=== PATIENT | female | born 2000 | race Caucasian/White ===

== ENCOUNTER 2025-06-06 15:27 | Emergency (ER) | payer OTHER, SELFPAY ==
[2025-06-06 15:29] VITALS: BP 136/83
--- NOTE | 2025-06-06 18:25 | ED.GENMED ---
History of Present Illness
General
Chief Complaint: Skin Problem
Source: patient
Exam Limitations: none
Time Seen by Provider: 06/06/25 17:20
Nursing documentation reviewed up to this point in time: agreed with
History of Present Illness
History of Present Illness:
Patient is a 24-year-old female who was skateboarding last Friday 7 days ago and fell and was unsure if she had small rocks underneath her skin. She denies any redness or drainage fevers. She reports she had a left open wound to the hands however
her skin is healing and scabbed over.
Past History
Past History
ED Past Medical History: Asthma and Psychiatric (Anxiety, ADD)
ED Past Surgical History: None
Social History
Tobacco: Non-smoker
Alcohol: None
Drug: Marijuana
Personal: Single
Living: with family
Employment: Not employed
Family History
Family History: Other (Noncontributory)
Phy Exam
General Physical Exam
General Presentation: no apparent distress
General age: appears stated age
General Skin: warm and dry
General Habitus: normal
General Mental: alert
General Hydration: appears well hydrated
Neurological Exam
Neurological Exam: alert and oriented x3
Musculoskeletal Exam
Musculoskeletal Exam: full ROM and other (Bilateral volar hands with healing abrasions no obvious foreign body good flexion extension no erythema or drainage nml flex/extension of fingers )
Skin Exam
Skin Exam: normal color and warm/dry
Psychiatric Exam
Psychiatric Exam: normal mood/affect
Course
Orders/Labs/Results
Orders:
Orders
06/06/25 18:24
Hand, Left 3 View [CR Hand - Left Min 3 Views] Urgent
Comment:
Reason For Exam: possible fb
Hand, Right 3 View [CR Hand - Right Min 3 Views] Urgent
Comment:
Reason For Exam: possible fb
Vital Signs
Initial and Last Documented VS:
Initial Vital Signs
Temp Pulse Resp BP Pulse Ox
98.6 F 59 16 136/83 99
06/06/25 15:29 06/06/25 15:29 06/06/25 15:29 06/06/25 15:29 06/06/25 15:29
Last Documented Vital Signs
Temp Pulse Resp BP Pulse Ox
98.6 F 59 16 136/83 99
06/06/25 15:29 06/06/25 15:29 06/06/25 15:29 06/06/25 15:29 06/06/25 18:26
MDM/Problems Addressed
Differential Diagnosis Includes:
not limited to: Foreign body
MDM/Problems Addressed:
On exam there is no obvious foreign bodies noted and no acute findings on x-ray. There is no evidence of infection wounds appear to be healing to bilateral volar aspects of her hands will have patient continue to do good wound care and follow-up
with the family doctor return precautions given
*Radiology
Radiology exam reviewed: preliminary read by ED provider (neg for fb b/l )
*Pulse Oximetry
SaO2: 99
Oxygen Mode of Delivery: Room air
Patient hypoxic: no
*Critical Care Note
Total Time (30-74mins, 75-104mins- exclusive of procedures): Not Applicable
ED Attending Note
-
Portions of this chart may have been created with voice recognition software.� Occasional wrong word or��sound alike� substitutions may have occurred due to the inherent limitations of voice recognition software.
Discharge Plan
Departure
Patient Disposition: Home (Routine Discharge)
Date of Disposition: 06/06/25
Time of Disposition: 19:04
Patient with high blood pressure during this ER visit?: Yes
Condition: Fair
Covid-19: Not Applicable
Discharge Problem:
wound care
Instructions: Wound Care (DC), BLOOD PRESSURE
Prescriptions:
No Action
cetirizine 10 MG tablet
10 mg PO DAILY
topiramate [Topamax] 200 MG tablet
100 mg PO BID
cephalexin 500 MG capsule
500 mg PO TID Qty: 15 0RF
lidocaine HCl [Lidocaine HCl Viscous] 2 % solution
15 ml PO QIDPRN PRN (Reason: pain) Qty: 250 0RF
Referrals:
Sharla Hickman MD [Family Provider, Internal Medicine]
Activity Restrictions/Additional Instructions:
Continue to wash with soap and water twice a day.
Return if any worsening of symptoms and any evidence of infection redness swelling drainage fever chills
Interventions
Interventions:
*Risk Screen - Suicide Last Done: 06/06/25 15:32
*General Assessment Last Done: 06/06/25 15:32
*Neglect/Abuse Screening Last Done: 06/06/25 15:32
*ED- Fall Risk Assessment Last Done: 06/06/25 18:26
*ED COVID-19 Vaccine History Last Done: 06/06/25 15:32
ED-Skin Assessment Last Done: 06/06/25 18:59
Discharge Date and Time
Print Language: GREEK
== END 2025-06-06 19:18 | disposition home or self-care (01) ==
LOC: EMR 15:27
PROVIDERS: EMERGENCY PHYSICIAN Emergency Medicine; FAMILY PHYSICIAN Emergency Medicine
DX: S61.402A Unspecified open wound of left hand, initial encounter (principal); S61.401A Unspecified open wound of right hand, initial encounter; R03.0 Elevated blood-pressure reading, without diagnosis of hypertension; J45.909 Unspecified asthma, uncomplicated; F41.9 Anxiety disorder, unspecified; F98.8 Other specified behavioral and emotional disorders with onset usually occurring in childhood and adolescence; V00.131A Fall from skateboard, initial encounter; Y93.51 Activity, roller skating (inline) and skateboarding
CPT/HCPCS: 99283; 73130